=== PATIENT | female | born 1995 | race African-American/Black ===

== ENCOUNTER 2019-09-04 10:31 | Emergency (ER) | payer OTHER ==
[~2019-09-04] VITALS: Ht 170.2 cm; Wt 107.0 kg
[2019-09-04 10:37] VITALS: Ht 170.2 cm; Wt 107.0 kg
[2019-09-04 11:33] LABS: BASOPHIL % 0.3 % (0-2); PLATELET COUNT 356 x10^3mcL (130-400)
[2019-09-04 11:34] LABS: RED CELL DISTRIBUTION WIDTH 14.7 % (11.5-14.5)
[2019-09-04 11:36] LABS: CALCIUM 9.2 mg/dL (8.5-10.1); CARBON DIOXIDE 26.5 mmol/L (21-32); CHLORIDE SERUM 107 mmol/L (98-107); GFR1 > 60 mL/min; GLUCOSE SERUM 84 mg/dL (74-106); POTASSIUM SERUM 4.1 mmol/L (3.5-5.1); SODIUM SERUM 142 mmol/L (136-145)
[2019-09-04 11:40] LABS: ALBUMIN 3.6 g/dL (3.4-5.0); ALKALINE PHOSPHATASE 70 U/L (46-116); ALT/SGPT 33 U/L (14-59); AST/SGOT 13 U/L (15-37); BILIRUBIN TOTAL 0.38 mg/dL (0.20-1.00); LIPASE 130 IU/L (73-393); TOTAL PROTEIN, SERUM 7.9 g/dL (6.4-8.2)
[2019-09-04 12:36] VITALS: BP 133/89
== END 2019-09-04 12:39 | disposition home or self-care (01) ==
LOC: ED 10:31
PROVIDERS: Emergency Medicine
DX: O99.611 Diseases of the digestive system complicating pregnancy, first trimester (principal); K29.70 Gastritis, unspecified, without bleeding; Z3A.00 Weeks of gestation of pregnancy not specified
CPT/HCPCS: 36415; J1885; Q0092